=== PATIENT | female | born 1995 | race Caucasian/White ===

== ENCOUNTER 2023-09-10 23:17 | Emergency (ER) | payer BC, SELFPAY ==
[2023-09-10 23:25] VITALS: BP 101/69
--- NOTE | 2023-09-11 00:53 | ED.GENMED ---
History of Present Illness
General
Chief Complaint: Skin Problem
Source: patient
Time Seen by Provider: 09/11/23 00:30
History of Present Illness
History of Present Illness:
27yoF with no significant past medical history presenting for evaluation of a left thigh wound. She initially started with a small pimple about 2 weeks ago. She states the area came to a head and drained purulent liquid. The area then seemed to
improve. She noticed that the area became warm and itchy starting yesterday. She noticed surrounding redness this morning. She spoke with a doctor on [facility] today and she was prescribed Keflex. Patient has had 2 doses thus far. She started to
experience body aches and a low grade temperature this evening so decided to come to the ED. Tmax 99. No known history of MRSA.
Phy Exam
General Physical Exam
General Presentation: well appearing and no apparent distress
General age: appears stated age
General Skin: warm and dry
General Habitus: normal
Cardiovascular Exam
Cardiovascular Exam: regular rate/rhythm
Pulmonary Exam
Pulmonary Exam: no respiratory distress
Skin Exam
Skin Exam: erythema and other (Area of erythema noted to L posterior upper thigh with central area of induration. No fluctuance, drainage, crepitus, or pain out of proportion. No red streaking. )
Psychiatric Exam
Psychiatric Exam: normal mood/affect
Course
Orders/Labs/Results
Orders:
Orders
09/11/23 00:52
Sulfamethox./Trimethoprim Ds [Bactrim Ds 800 mg/160 mg] 1 tablet PO NOW STA
09/11/23 00:53
Test Result ONCE
09/11/23 01:12
HCG, Urine Qualitative Screen Urgent
Date Specimen was Collected: 09/11/23
Time Specimen was Collected: 00:54
Vital Signs
Initial and Last Documented VS:
Initial Vital Signs
Temp Pulse Resp BP Pulse Ox
98.8 F 85 20 101/69 98
09/10/23 23:25 09/10/23 23:25 09/10/23 23:25 09/10/23 23:25 09/10/23 23:25
Last Documented Vital Signs
Temp Pulse Resp BP Pulse Ox
98.8 F 85 20 101/69 98
09/10/23 23:25 09/10/23 23:25 09/10/23 23:25 09/10/23 23:25 09/10/23 23:25
MDM/Problems Addressed
Differential Diagnosis Includes:
27yoF here with L thigh redness. Started with a pimple 2 weeks ago which drained. Now with increasing redness/warmth x 24 hours and body aches. Tmax 99. Started on Keflex earlier today (2 doses thus far). Patient is well-appearing in no acute
distress. Temperature 98.8. Vitals otherwise stable. There is evidence of cellulitis on exam with central induration. No clinical evidence of abscess, lymphangitis, or NSTI.
Patient not meeting any SIRS criteria. Antibiotics only started this afternoon so she has not failed outpatient therapy. Will defer labs/imaging at this time. Will add Bactrim for MRSA coverage. Area of erythema was marked with a skin marker.
She was advised to follow-up with her PCP. ED return precautions discussed. She was discharged in stable condition.
*Critical Care Note
Total Time (30-74mins, 75-104mins- exclusive of procedures): Not Applicable
ED Attending Note
-
Portions of this chart may have been created with voice recognition software.� Occasional wrong word or��sound alike� substitutions may have occurred due to the inherent limitations of voice recognition software.
Discharge Plan
Departure
Patient Disposition: Home (Routine Discharge)
Date of Disposition: 09/11/23
Time of Disposition: 00:56
Patient with high blood pressure during this ER visit?: No
Discharge Problem:
Cellulitis of left thigh
Instructions: Cellulitis (Skin Infection), Adult (DC)
Prescriptions:
New
sulfamethoxazole-trimethoprim [Bactrim DS] 800-160 mg tablet
1 tab PO BID Qty: 13 0RF
No Action
Kyleena
1 applic vaginal DAILY
cephalexin
500 mg PO BID
Referrals:
PRIVATE,PHYSICIAN [Family Provider] -
Activity Restrictions/Additional Instructions:
Continue taking Keflex. Add Bactrim as prescribed.
Monitor the area of redness daily.
Please follow-up with your family doctor on Wednesday. Return to the ER with any worsening symptoms or if you do not improve in 72 hours.
Interventions
Interventions:
*Risk Screen - Suicide Last Done: 09/10/23 23:25
*General Assessment Last Done: 09/10/23 23:25
*Neglect/Abuse Screening Last Done: 09/10/23 23:25
ED- Fall Risk Assessment Last Done: 09/10/23 23:25
*ED COVID-19 Vaccine History Last Done: 09/10/23 23:25
*Nursing Disposition Last Done: 09/11/23 01:40
ED-Skin Assessment Last Done: 09/11/23 01:34
Discharge Date and Time
Discharge Date/Time: 09/11/23 01:41
Print Language: HEBREW
[2023-09-11 01:22] LABS: HCG, Urine Qualitative Screen Negative
[2023-09-11] MEDS: BACTRIM DS 800 MG/160 MG 1 TABLET PO (01:36)
== END 2023-09-11 01:41 | disposition home or self-care (01) ==
LOC: EMR 23:17
PROVIDERS: Physician Assistant; EMERGENCY PHYSICIAN Emergency Medicine
DX: L03.116 Cellulitis of left lower limb (principal)
CPT/HCPCS: 99283; 81025